=== PATIENT | male | born 1995 | race African-American/Black ===

== ENCOUNTER 2018-02-28 11:06 | Emergency (ER) | payer MEDICAID ==
[~2018-02-28] VITALS: Ht 175.3 cm; Wt 113.6 kg
[2018-02-28] MEDS ORDERED: KETOROLAC TROMETHAMINE 30 MG/ML VIAL IVP ONE (12:00)
[2018-02-28] MEDS ORDERED: DiphenhydrAMINE HCL 50 MG/ML VIAL IVP ONE (12:00)
[2018-02-28] MEDS ORDERED: MethylPREDNISolone SOD SUCC 125 MG/2 ML VIAL IVP ONE (12:00)
[2018-02-28 13:52] VITALS: BP 129/60
== END 2018-02-28 14:27 | disposition home or self-care (01) ==
LOC: EDBD 11:07 → EMS 11:07
DX: T78.40XA Allergy, unspecified, initial encounter (principal); R11.10 Vomiting, unspecified; F12.10 Cannabis abuse, uncomplicated; X58.XXXA Exposure to other specified factors, initial encounter
CPT/HCPCS: 96374; 96375; 99284; J1200; J1885; J2930